=== PATIENT | male | born 1990 | race Caucasian/White ===

== ENCOUNTER 2019-04-16 09:22 | Emergency (ER) | payer SELFPAY ==
[~2019-04-16 09:22] MED LIST: Iopamidol 370 76% 100 ML VIAL ONE
[2019-04-16] MEDS ORDERED: Dicyclomine 20 MG TAB ONE (09:39)
[2019-04-16] MEDS ORDERED: Ondansetron PF 4 MG/2 ML Vial ONE (09:40)
[2019-04-16] MEDS ORDERED: Pantoprazole 40 MG VIAL ONE (09:40)
[2019-04-16 10:00] LABS: #Basophils 0.1 thou/uL (0.0-0.2); #Eosinphils 0.2 thou/uL (0.0-0.7); #Lymphocytes 1.8 thou/uL (1.20-3.40); #Monocytes 0.4 thou/uL (0.11-0.59); #Neutrophils 3.5 thou/uL (1.40-6.50); %Basophils 1.9 % (0.0-1.0); %Eosinophils 2.8 % (0.0-10.0); %Lymphocytes 29.8 % (21.0-51.0); %Monocytes 6.8 % (0.0-10.0); %Neutrophils 58.7 % (42.0-75.0); Hemoglobin 18.1 g/dL (14.0-18.0); Mean Corpuscular HGB CONC 33.9 g/dL (32.0-36.0); Mean Corpuscular Hemoglobin 31.7 pg (27.0-31.0); Mean Corpuscular Volume 93.4 fL (78.0-98.0); Mean Platelet Volume 7.5 fL (7.4-10.4); Platelet Count 244 thou/uL (130-400); RBC Distribution Width 11.9 % (11.5-14.5); Red Blood Cell (RBC) Count 5.73 mill/uL (4.70-6.10); White Blood Cell (WBC) Count 5.9 thou/uL (4.8-10.8)
[2019-04-16 10:11] LABS: ALT (SGPT) 97 U/L (8-55); AST (SGOT) 59 U/L (5-34); Albumin 4.9 g/dL (3.5-5.0); Alkaline Phosphatase 73 U/L (40-150); Anion Gap 13 mmol/L (10-20); BUN (Urea Nitrogen) 9 mg/dL (8.9-20.6); Bilirubin, Total 0.5 mg/dL (0.2-1.2); Calc. Creatinine Clearance 0 mL/min (70-130); Calcium 9.5 mg/dL (7.8-10.44); Carbon Dioxide 26 mmol/L (22-29); Chloride 108 mmol/L (98-107); Estimated GFR-MDRD Greater than 90; Globulin 2.8 g/dL (2.4-3.5); Glucose 101 mg/dL (70-105); Lipase 13 U/L (8-78); Potassium 4.4 mmol/L (3.5-5.1); Protein, Total 7.7 g/dL (6.0-8.3); Sodium 143 mmol/L (136-145)
[2019-04-16] MEDS ORDERED: Acetaminophen 500 MG TAB ONE (11:24)
--- NOTE | 2019-04-16 12:25 | CT ---
ABDOMEN AND PELVIC CT SCAN WITH IV CONTRAST: HISTORY: Hematemesis. FINDINGS: The lung bases are clear. The liver, gallbladder, pancreas, spleen, and adrenal glands are unremarka ble. The kidneys show no renal calculus or acute obstruction. Normal-appearing appendix. Minima l nonspecific right colon wall thickening without evidence for adjacent edema or abnormal fat strandi ng, nonspecific. IMPRESSION: 1. No significant acute process in the abdomen or pelvis. Possible mild nonspecific right colon wal l thickening without other signs of inflammation. 2. Evidence for incidental bilateral pars defects at L5-S1. POS: C
== END 2019-04-16 11:31 | disposition home or self-care (01) ==
LOC: SCSER 09:22
DX: R10.9 Unspecified abdominal pain (principal); F17.220 Nicotine dependence, chewing tobacco, uncomplicated
CPT/HCPCS: 74177; 80053; 83690; 85025; 86850; 86900; 86901; 96361; 96374; 96375; C9113; J2405; Q9967

== ENCOUNTER 2019-04-23 10:40 | Emergency (ER) | payer SELFPAY ==
[2019-04-23] MEDS ORDERED: Morphine 4 MG/ML VIAL ONE (11:24)
[2019-04-23] MEDS ORDERED: Ketorolac Tromethamine 30 MG/ML VIAL ONE (11:24)
[2019-04-23 11:29] LABS: #Eosinphils 0.2 thou/uL (0.0-0.7); #Lymphocytes 1.5 thou/uL (1.20-3.40); #Monocytes 0.3 thou/uL (0.11-0.59); #Neutrophils 2.8 thou/uL (1.40-6.50); %Basophils 0.7 % (0.0-1.0); %Eosinophils 3.2 % (0.0-10.0); %Lymphocytes 30.7 % (21.0-51.0); %Monocytes 6.5 % (0.0-10.0); %Neutrophils 58.9 % (42.0-75.0); Hemoglobin 17.1 g/dL (14.0-18.0); Mean Corpuscular HGB CONC 35.3 g/dL (32.0-36.0); Mean Corpuscular Hemoglobin 33.7 pg (27.0-31.0); Mean Corpuscular Volume 95.4 fL (78.0-98.0); Mean Platelet Volume 7.9 fL (7.4-10.4); Platelet Count 184 thou/uL (130-400); RBC Distribution Width 11.8 % (11.5-14.5); Red Blood Cell (RBC) Count 5.08 mill/uL (4.70-6.10); White Blood Cell (WBC) Count 4.8 thou/uL (4.8-10.8)
[2019-04-23 11:49] LABS: ALT (SGPT) 90 U/L (8-55); AST (SGOT) 44 U/L (5-34); Albumin 4.6 g/dL (3.5-5.0); Alkaline Phosphatase 62 U/L (40-150); Anion Gap 12 mmol/L (10-20); BUN (Urea Nitrogen) 14 mg/dL (8.9-20.6); Calc. Creatinine Clearance 0 mL/min (70-130); Calcium 9.8 mg/dL (7.8-10.44); Carbon Dioxide 23 mmol/L (22-29); Chloride 106 mmol/L (98-107); Estimated GFR-MDRD 89; Globulin 2.5 g/dL (2.4-3.5); Glucose 104 mg/dL (70-105); Lipase 13 U/L (8-78); Potassium 3.5 mmol/L (3.5-5.1); Protein, Total 7.1 g/dL (6.0-8.3); Sodium 137 mmol/L (136-145)
[2019-04-23 11:59] LABS: Bilirubin Negative (Negative); Blood, Urine Negative (Negative); Clarity CLEAR (Clear); Glucose, Urine (Dipstick) Negative (Negative); Leukocyte Negative (Negative); Nitrite Negative (Negative); Protein, Urine (Dipstick) Negative (Neg-Trace); Specific Gravity, Urine 1.022 (1.002-1.036)
--- NOTE | 2019-04-23 12:08 | CT ---
CT ABDOMEN AND PELVIS WITH IV CONTRAST: HISTORY: Abdominal pain COMPARISON: 04/16/2019 FINDINGS: Absence of oral contrast reduces the sensitivity of the exam particularly for the ventilation of nan l. Lung bases are clear. The liver, spleen, pancreas, adrenal glands and kidneys appear normal. No calci fied gallstones are seen. No free air, free fluid or lymphadenopathy is noted in the abdomen or pelvis. The small bowel loops are not abnormally dilated. A normal-appearing appendix is seen. Bilate ral pars articularis defects at L5 IMPRESSION: No acute process.
[2019-04-23] MEDS ORDERED: ISOVUE-370 76%-LOCM 1 ML ONE (15:33)
== END 2019-04-23 13:45 | disposition home or self-care (01) ==
LOC: ERS 10:40
DX: R10.31 Right lower quadrant pain (principal); F41.9 Anxiety disorder, unspecified; F32.9 Major depressive disorder, single episode, unspecified; F17.220 Nicotine dependence, chewing tobacco, uncomplicated; Z79.899 Other long term (current) drug therapy
CPT/HCPCS: 36415; 74177; 80053; 81003; 83690; 85025; 96361; 96374; 96375; J1885; J2270

== ENCOUNTER 2019-05-07 23:35 | Emergency (ER) | payer OTHER, SELFPAY ==
[2019-05-08 00:44] LABS: #Basophils 0.1 thou/uL (0.0-0.2); #Eosinphils 0.1 thou/uL (0.0-0.7); #Lymphocytes 2.2 thou/uL (1.20-3.40); #Monocytes 0.4 thou/uL (0.11-0.59); #Neutrophils 3.2 thou/uL (1.40-6.50); %Basophils 0.8 % (0.0-1.0); %Eosinophils 2.4 % (0.0-10.0); %Monocytes 6.9 % (0.0-10.0); %Neutrophils 52.8 % (42.0-75.0); Hemoglobin 17.6 g/dL (14.0-18.0); Mean Corpuscular HGB CONC 35.3 g/dL (32.0-36.0); Mean Corpuscular Hemoglobin 33.1 pg (27.0-31.0); Mean Corpuscular Volume 93.8 fL (78.0-98.0); Mean Platelet Volume 7.5 fL (7.4-10.4); Platelet Count 265 thou/uL (130-400); RBC Distribution Width 11.5 % (11.5-14.5); Red Blood Cell (RBC) Count 5.32 mill/uL (4.70-6.10)
[2019-05-08 00:52] LABS: Bilirubin Negative (Negative); Blood, Urine Trace (Negative); Clarity CLEAR (Clear); Glucose, Urine (Dipstick) Negative (Negative); Leukocyte Negative (Negative); Nitrite Negative (Negative); Protein, Urine (Dipstick) Negative (Neg-Trace); Specific Gravity, Urine 1.017 (1.002-1.036); Urobilinogen 0.2 mg/dL (0.2-1.0); pH, Urine 5.5 (5.0-9.0)
[2019-05-08 00:55] LABS: Bacteria/HPF None Seen HPF (None Seen); Hyaline Casts/LPF 0-3 HYALINE CAST LPF (0-3 Hyaline); Pathc Cast-AUWi Flag 0.13 (0-2.49); RBC/HPF None Seen HPF (0-3); Squamous Epithelial None Seen HPF (0-3); WBC/HPF 0-3 HPF (0-3)
[2019-05-08 01:33] LABS: ALT (SGPT) 52 U/L (8-55); AST (SGOT) 34 U/L (5-34); Albumin 4.8 g/dL (3.5-5.0); Alkaline Phosphatase 74 U/L (40-150); Anion Gap 15 mmol/L (10-20); BUN (Urea Nitrogen) 10 mg/dL (8.9-20.6); Bilirubin, Total 0.6 mg/dL (0.2-1.2); Calc. Creatinine Clearance 0 mL/min (70-130); Calcium 9.7 mg/dL (7.8-10.44); Carbon Dioxide 23 mmol/L (22-29); Chloride 109 mmol/L (98-107); Estimated GFR-MDRD 89; Globulin 2.8 g/dL (2.4-3.5); Glucose 116 mg/dL (70-105); Lipase 17 U/L (8-78); Potassium 3.8 mmol/L (3.5-5.1); Protein, Total 7.6 g/dL (6.0-8.3); Sodium 143 mmol/L (136-145)
--- NOTE | 2019-05-08 07:47 | CT ---
PRELIMINARY REPORT/[facility]/EMERGENCY AFTER HOURS PROCEDURE: EXAM: CT Abdomen and Pelvis With Contrast EXAM DATE/TIME: 05/08/2019 1:37 AM CLINICAL HISTORY: 28 years old, male; Patient HX: PT reports rlq abdominal pain beginning several weeks ago. PT reports nausea. PT denies vomiting/diarrhea. PT reports pain is relieved by nothing. TECHNIQUE: Imaging protocol: Axial computed tomography images of the abdomen and pelvis with intravenous contrast. Coronal reformatted images were created and reviewed. COMPARISON: No relevant prior studies available. FINDINGS: ABDOMEN: Liver: Suspected fatty infiltration of the liver. No mass. Gallbladder and bile ducts: Gallbladder appears contracted, limits evaluation. Pancreas: Normal. No ductal dilation. Spleen: Normal. No splenomegaly. Adrenals: Normal. No mass. Kidneys and ureters: No evidence of stones within the kidneys, ureters or bladder. No evidence of obstructive uropathy or obstructive nephropathy. Stomach and bowel: No evidence of bowel obstruction. Appendix: Appendix - visualized portions appear normal. PELVIS: Bladder: Unremarkable as visualized. Reproductive: Prostate appears within normal limits. ABDOMEN and PELVIS: Intraperitoneal space: Normal. No free air. No significant fluid collection. Bones/joints: No acute fracture. No dislocation. Soft tissues: Unremarkable. Vasculature: Normal. No abdominal aortic aneurysm. Lymph nodes: Normal. No enlarged lymph nodes. IMPRESSION: 1. Appendix - visualized portions appear normal. 2. No evidence of obstructive uropathy or obstructive nephropathy. 3. No evidence of bowel obstruction. 4. Suspected fatty infiltration of the liver. Thank you for allowing us to participate in the care of your patient. Dictated and Authenticated by: Nate Rosen MD 05/08/2019 3:42 AM Central Time ([place] & [place]) FINAL REPORT CT Abdomen Pelvis W Con History: [Right lower quadrant pain] Comparison: CT abdomen pelvis April 23, 2019 Findings: Lung bases are clear. No pericardial effusion. Mild increased attenuation of the anterior subcutaneous fat of the infraumbilical anterior soft tissu es. No dilated loops of large or small bowel. Impression: Findings and impression are concordant with the preliminary report. Transcribed Date/Time: 05/08/2019 8:01 AM
[2019-05-08] MEDS ORDERED: ISOVUE-370 76%-LOCM 1 ML ONE (09:38)
== END 2019-05-08 02:32 | disposition home or self-care (01) ==
LOC: ERS 23:35
DX: Z02.89 Encounter for other administrative examinations (principal); F32.9 Major depressive disorder, single episode, unspecified; F41.9 Anxiety disorder, unspecified; F17.220 Nicotine dependence, chewing tobacco, uncomplicated; Z79.899 Other long term (current) drug therapy; Z79.891 Long term (current) use of opiate analgesic
CPT/HCPCS: 74177; 80053; 81003; 81015; 83690; 85025; 86850; 86900; 86901

== ENCOUNTER 2021-10-11 08:52 | Outpatient (CLI) | payer BC | END 2021-10-11 08:53 | disposition home or self-care (01) | LOC: BICRAD 08:52 | PROVIDERS: ATTEND Specialist | DX: M54.50 Low back pain, unspecified (principal); M51.37 Other intervertebral disc degeneration, lumbosacral region; M43.17 Spondylolisthesis, lumbosacral region | CPT/HCPCS: 72100 ==